=== PATIENT | male | born 1970 | race Caucasian/White ===

== ENCOUNTER 2016-04-13 10:18 | Emergency (ER) | payer MEDICAID ==
[~2016-04-13] VITALS: Wt 64.0 kg
[2016-04-13] MEDS ORDERED: IBUP-1542 PO (11:55)
[2016-04-13] MEDS ORDERED: ALBU18HF INHALATION (11:55)
[2016-04-13] MEDS ORDERED: IBUPROFEN 600 MG TAB PO ONE (12:00)
--- NOTE | 2016-04-13 12:07 | ERD ---
ER Documentation Chief Complaint Date/Time DATE: 04/13/16 TIME: 12:02 Chief Complaint COUGH AND WHEEZING FOR 3 DAYS. GETTING WORSE TODAY. NO INHALERS HPI 45-year-old male with a history of asthma presenting with cough and wheezing for about 3 days. He has had no associated fevers or phlegm. No associated runny nose. He denies any shortness of breath or chest pain. He also complains of left anterior shoulder pain for about 2 days. It started after lifting something heavy. He did not feel a pop or tear. His pain is worse when he tries to lift his arm up over his head. Better with rest. He denies any numbness, tingling, weakness in the arm. ROS All systems reviewed and are negative except as per history of present illness. Medications Home Meds Active Scripts Albuterol Sulfate* (Ventolin HFA*) 18 Gm Hfa.aer.ad, 2 PUFF INHALATION Q6H, #1 INHALER Prov:DINH SHAH MD 04/13/16 Ibuprofen* (Motrin*) 600 Mg Tab, 600 MG PO Q6H Y for PAIN AND OR ELEVATED TEMP, #30 TAB Prov:DINH SHAH MD 04/13/16 PMhx/Soc Hx Respiratory Disorders: Yes (Asthma) Hx Substance Use: No Hx Tobacco Use: No Smoking Status: Never smoker Physical Exam Vitals Vital Signs Date Time Temp Pulse Resp B/P Pulse Ox O2 Delivery O2 Flow Rate FiO2 04/13/16 10:37 98.0 85 22 130/84 95 Physical Exam Const: No apparent distress, nontoxic Head: Atraumatic Eyes: Normal Conjunctiva ENT: Normal External Ears, Nose and Mouth. Neck: Full range of motion. No meningismus. Resp: No respiratory distress, no tachypnea, diffuse wheezing bilaterally on expiration, no rales or rhonchi Cardio: Regular rate and rhythm, no murmurs Abd: Soft, non tender, non distended. Normal bowel sounds Skin: No petechiae or rashes Back: No midline or flank tenderness Ext: No cyanosis, or edema. Left shoulder appears normal. Tenderness to palpation over anterior shoulder joint. No tenderness over the AC joint or clavicle. No deformities noted. Full range of motion. 5 out of 5 strength in all distributions. Pain with active range of motion with abduction at 90 Neur: Awake and alert Psych: Normal Mood and Affect Results 24 hrs Current Medications Medications (Trade) Dose Ordered Sig/Ashley Route PRN Reason Start Time Stop Time Status Last Admin Dose Admin Ibuprofen (Motrin) 600 mg ONCE ONCE PO 04/13/16 12:00 04/13/16 12:01 DC Procedures/MDM Patient is presenting with acute asthma exacerbation that is mild. His vitals are all within normal limits. 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 However he is hemodynamically stable and appropriate for outpatient treatment. Albuterol was prescribed. With regard to his left shoulder pain, it seems like he has a shoulder sprain or strain. I do not suspect an acute cardiac etiology or dissection. He is neurovascularly intact. I recommended rest, ice, no heavy lifting, and ibuprofen for the pain. Patient was discharged in stable condition with a prescription for albuterol and ibuprofen. Departure Diagnosis: Primary Impression: Left shoulder strain Encounter type: initial encounter Qualified Code: S46.912A - Left shoulder strain, initial encounter Additional Impression: Asthma exacerbation, mild Condition: Stable Patient Instructions: Understanding Asthma Triggers, Shoulder Sprain Referrals: ON LICENSE OF [facility] YOU HAVE RECEIVED A MEDICAL SCREENING EXAM AND THE RESULTS INDICATE THAT YOU DO NOT HAVE A CONDITION THAT REQUIRES URGENT TREATMENT IN THE EMERGENCY DEPARTMENT. FURTHER EVALUATION AND TREATMENT OF YOUR CONDITION CAN WAIT UNTIL YOU ARE SEEN IN YOUR DOCTORS OFFICE WITHIN THE NEXT 1-2 DAYS. IT IS YOUR RESPONSIBILITY TO MAKE AN APPOINTMENT FOR FOLOW-UP CARE. IF YOU HAVE A PRIMARY DOCTOR --you should call your primary doctor and schedule an appointment IF YOU DO NOT HAVE A PRIMARY DOCTOR YOU CAN CALL OUR PHYSICIAN REFERRAL HOTLINE AT IF YOU CAN NOT AFFORD TO SEE A PHYSICIAN YOU CAN CHOSE FROM THE FOLLOWING ON LICENSE OF [facility] [address] [facility]. [facility] [address] [facility]. [facility] [address] [facility] [address] [facility]. [facility] [address] [facility] [facility]. [address] MD Apr 13, 2016 12:07
[2016-04-13 12:28] VITALS: RESP 18
== END 2016-04-13 12:29 | disposition home or self-care (01) ==
LOC: FTE 10:18
DX: S46.912A Strain of unspecified muscle, fascia and tendon at shoulder and upper arm level, left arm, initial encounter (principal); J45.901 Unspecified asthma with (acute) exacerbation; X50.0XXA Overexertion from strenuous movement or load, initial encounter; Y92.9 Unspecified place or not applicable
CPT/HCPCS: Z7502; Z7610; 99283

== ENCOUNTER 2016-04-30 09:33 | Emergency (ER) | payer SELFPAY ==
[~2016-04-30] VITALS: Wt 66.8 kg
[~2016-04-30 09:33] MED LIST: ALBU18HF INHALATION; IBUP-1542 PO
[2016-04-30] MEDS ORDERED: IPRATROPIUM (NEB) 0.5 MG/2.5 ML AMP HHN ONE (10:30)
[2016-04-30] MEDS ORDERED: ALBUTEROL 0.083% (NEB) 2.5 MG/3 ML AMP HHN ONE (10:30)
[2016-04-30] MEDS ORDERED: DEXAMETHASONE 10 MG/ML 1 ML INJ IM STA (10:33)
--- NOTE | 2016-04-30 10:46 | RADRPT ---
PROCEDURE: XR Chest AP portable CLINICAL INDICATION: Asthma, cough x1 month TECHNIQUE: An AP portable radiograph of the chest was submitted. COMPARISON: None. FINDINGS: Support Hardware: None Cardiovascular: The cardiovascular silhouette appears unremarkable. Lung Ku: The lung ku appear clear with no nodule, alveolar infiltrate, for a interstitial pr ominence evident. Pleural Spaces: No pneumothorax or pleural effusion is identified. Osseous Structures: Mild degenerative endplate changes are seen to the spine. Soft Tissues: The soft tissues appear unremarkable. IMPRESSION: Unremarkable portable chest. Physician Zuly Date Time Electronically viewed and signed by Physician Zuly on 04/30/2016 10:46 RH/
--- NOTE | 2016-04-30 10:49 | ERD ---
ER Documentation Chief Complaint Date/Time DATE: 04/30/16 TIME: 10:45 Chief Complaint COUGH, SOB, HX OF ASTHMA HPI This is a 45-year-old male with medical history of asthma complaining of nonproductive cough for 1 month and shortness of breath for 1 day. Patient ran out of his albuterol medication week ago. Denies fever, chest pain, nausea, dizziness or anorexia. Denies history of smoking. Patient works as a construction painter and grader cork. Denies night sweats. No recent sick contacts. ROS All systems reviewed and are negative except as per history of present illness. Medications Home Meds Active Scripts Benzonatate* (Tessalon Perle*) 100 Mg Capsule, 100 MG PO Q8H Y for COUGH, #30 CAP Prov:ROSALIND ROBB 04/30/16 Albuterol Sulfate* (Ventolin HFA*) 18 Gm Hfa.aer.ad, 2 PUFF INHALATION Q6H for WHEEZING, #2 INHALER Prov:ROSALIND ROBB 04/30/16 Albuterol Sulfate* (Ventolin HFA*) 18 Gm Hfa.aer.ad, 2 PUFF INHALATION Q6H, #1 INHALER Prov:DINH SHAH MD 04/13/16 Ibuprofen* (Motrin*) 600 Mg Tab, 600 MG PO Q6H Y for PAIN AND OR ELEVATED TEMP, #30 TAB Prov:DINH SHAH MD 04/13/16 PMhx/Soc History of Surgery: No Anesthesia Reaction: No Hx Neurological Disorder: No Hx Respiratory Disorders: Yes (Asthma) Hx Cardiac Disorders: No Hx Psychiatric Problems: No Hx Miscellaneous Medical Probl: No Hx Alcohol Use: No Hx Substance Use: No Hx Tobacco Use: No Physical Exam Vitals Vital Signs Date Time Temp Pulse Resp B/P Pulse Ox O2 Delivery O2 Flow Rate FiO2 04/30/16 10:34 74 19 96 21 04/30/16 09:39 97.6 67 18 133/75 98 Physical Exam Physical Exam CONST: Well-developed, well-nourished, in no acute distress. HEENT: Atraumatic. Normal Conjunctiva. EOM intact. TM intact. External ear is normal. Clear oropharnyx without erythema. Moist mucous membranes. Supple. Full range of motion. No meningismus. No submandibular induration. RESP: Bilateral wheezing upon auscultation on all sagastume. No use of accessory muscles. CARDIO: Regular rate and rhythm, no murmurs ABD: Soft, non tender, non distended. Normal bowel sounds. No McBurney' s point tenderness. No guarding or rigidity. No peritoneal signs. SKIN: No petechiae or rashes BACK: No midline or flank tenderness EXT: No cyanosis or edema. Distal pulses equal and bilateral NEURO: Awake and alert, appropriate for age Results 24 hrs Current Medications Medications (Trade) Dose Ordered Sig/Ashley Route PRN Reason Start Time Stop Time Status Last Admin Dose Admin Albuterol (Proventil 0.083% (Neb)) 5 mg ONCE ONCE HHN 04/30/16 10:30 04/30/16 10:31 DC 04/30/16 10:34 Ipratropium [place] (Atrovent 0.02% (Neb)) 0.5 mg ONCE ONCE HHN 04/30/16 10:30 04/30/16 10:31 DC 04/30/16 10:33 Dexamethasone (Decadron) 10 mg ONCE STAT IM 04/30/16 10:33 04/30/16 10:34 DC 04/30/16 10:48 PROCEDURE: XR Chest AP portable CLINICAL INDICATION: Asthma, cough x1 month TECHNIQUE: An AP portable radiograph of the chest was submitted. COMPARISON: None. FINDINGS: Support Hardware: None Cardiovascular: The cardiovascular silhouette appears unremarkable. Lung Sagastume: The lung sagastume appear clear with no nodule, alveolar infiltrate, for a interstitial prominence evident. Pleural Spaces: No pneumothorax or pleural effusion is identified. Osseous Structures: Mild degenerative endplate changes are seen to the spine. Soft Tissues: The soft tissues appear unremarkable. IMPRESSION: Unremarkable portable chest. Physician Zuly Date Time Electronically viewed and signed by Physician Zuly on 04/30/2016 10:46 Procedures/[facility] EMERGENCY DEPARTMENT COURSE/MEDICAL DECISION MAKING This is a 45-year-old who comes to the emergency room secondary to complaints of cough for 1 month and shortness of breath for 1 day. The patient was given dexamethasone IM, albuterol and Atrovent nebulizer in the department. On re-evaluation, the patient was feeling improved and clear on auscultation. Chest x-ray was reviewed by the radiologist and was unremarkable. My primary diagnosis is acute asthma exacerbation. Secondary diagnosis is chronic cough. Differential diagnoses considered, included but not limited to pneumonia, tuberculosis, pertussis, upper respiratory infection, bronchitis, epiglottitis. I have discussed the diagnostic findings with the patient and answered any questions or concerns. The patient was discharged for outpatient management with a prescription for Atrovent HFA and Tessalon po. The patient was advised to followup with their PMD in 1 week and to return to the Emergency Department if there are any new or worsening symptoms. The patient understood and agreed with the diagnosis, treatment and plan. The patient is stable for discharge at this time. Departure Diagnosis: Primary Impression: Acute asthma exacerbation Asthma severity: severe persistent Qualified Code: J45.51 - Severe persistent asthma with acute exacerbation Additional Impression: Cough present for greater than 3 weeks Condition: Good Patient Instructions: Asthma Medications Referrals: NO PRIMARY,CARE PHYSICIAN (PCP) [facility] ([facility]) Usted se russo hecho un examen mdico de control que le indica que no est en sandra condicin que requiera tratamiento urgente en el Departamento de Emergencia. Un estudio ms profundo y el tratamiento de patel condicin pueden esperar sin ningn riesgo hasta que usted sea atendida/o en el consultorio de patel mdico o sandra cl chai. Es responsabilidad suya arreglar sandra kymberly para el seguimiento del whitley. MANEJO DE CONDICIONES NO URGENTES EN EL FUTURO 1) Si usted tiene un mdico de atencin primaria: Usted debera llamar a patel mdico de atencin primaria antes de venir al departamento de emergencia. Despus de las horas de consultorio, patel doctor o patel asociado/a est disponible por telfono. El mdico o enfermero de maciel en el servicio telefnico puede asesorarle por piotr medio para atender el problema, o whitley contrario se puede programar sandra kymberly. 2) Si usted no tiene un mdico de atencin primaria: Llame al mdico o clnica de referencia que aparece abajo ilan las horas de consultorio para hacer sandra kymberly para que le vean. CLINICAS: [facility] [phone] [facility] [phone] [facility] [phone] [place] [address] [phone] [place] [address] [phone] [facility] [phone] [facility]. [place] () Usted se russo hecho un examen mdico de control que le indica que no est en sandra condicin que requiera tratamiento urgente en el Departamento de Emergencia. Un estudio ms profundo y el tratamiento de patel condicin pueden esperar sin ningn riesgo hasta que usted sea atendida/o en el consultorio de patel mdico o sandra cl chai. Es responsabilidad suya arreglar sandra kymberly para el seguimiento del whitley. MANEJO DE CONDICIONES NO URGENTES EN EL FUTURO 1) Si usted tiene un mdico de atencin primaria: Usted debera llamar a patel mdico de atencin primaria antes de venir al departamento de emergencia. Despus de las horas de consultorio, patel doctor o patel asociado/a est disponible por telfono. El mdico o enfermero de maciel en el servicio telefnico puede asesorarle por piotr medio para atender el problema, o whitley contrario se puede programar sandra kymberly. 2) Si usted no tiene un mdico de atencin primaria: Llame al mdico o condado institucions de referencia que aparece abajo ilan las horas de consultorio para hacer sandra kymberly para que le vean. SI USTED NO PUEDE PAGAR PARA ARIEL UN MEDICO puede ir a: [facility] [address] [place] [address] [facility] [address] [place] [address] [facility] [address] [place] [address] PARA MANGO [facility] [address] [place], [place] [id number] Additional Instructions: Follow-up with your primary care physician within 1 week. Return to the emergency department immediately should you have any new or worsening symptoms, uncontrolled fevers, or other unexplained symptoms. Take all medications as directed. ROSALIND ROBB Apr 30, 2016 10:49
[2016-04-30] MEDS ORDERED: ALBU18HF INHALATION (11:34)
[2016-04-30] MEDS ORDERED: BENZ100C70 PO (11:34)
== END 2016-04-30 11:46 | disposition home or self-care (01) ==
LOC: FTE 09:33
DX: J45.51 Severe persistent asthma with (acute) exacerbation (principal)
CPT/HCPCS: 71010; 94664; 96372; 99284; J1100

== ENCOUNTER 2016-08-08 11:32 | Emergency (ER) | payer SELFPAY ==
[~2016-08-08] VITALS: Ht 162.6 cm; Wt 94.0 kg
[~2016-08-08 11:32] MED LIST changes: +BENZ100C70 PO
[2016-08-08 11:50] VITALS: Ht 162.6 cm; Wt 94.0 kg
[2016-08-08] MEDS ORDERED: IPRATROPIUM (NEB) 0.5 MG/2.5 ML AMP INH STA (13:01)
[2016-08-08] MEDS ORDERED: METHYLPREDNISOLONE 125 MG INJ IM STA (13:01)
[2016-08-08] MEDS ORDERED: ALBUTEROL 0.5% (NEB) 2.5 MG/0.5 ML AMP INH STA (13:01)
--- NOTE | 2016-08-08 14:11 | RADRPT ---
PROCEDURE: XR Chest. CLINICAL INDICATION: chest pain, asthma TECHNIQUE: Single frontal view of the chest was obtained COMPARISON: 04/30/16 FINDINGS: The heart and mediastinum are within normal limits. The lungs are clear. There is no pleural effusion or pneumothorax. RPTAT: AA IMPRESSION: No acute disease. .Jesús King MD, MD Date Time Electronically viewed and signed by .Jesús King MD, on 08/08/2016 14:11 .S/
[2016-08-08] MEDS ORDERED: ALBU18HF INHALATION (14:41)
[2016-08-08] MEDS ORDERED: PRED20TA PO (14:41)
--- NOTE | 2016-08-08 16:06 | ERD ---
ER Documentation Chief Complaint Date/Time DATE: 08/08/16 TIME: 16:03 Chief Complaint asthma x 30 days; wheezing, cough HPI 45-year-old male patient with a past medical history of asthma presents to the ED complaining of a productive cough that started about 30 days ago. Patient reports that he tried to take the Tessalon Perles that were previously prescribed to him and stated that this did work for her his cough but stated that he still felt short of breath. Reports that he has been wheezing. Denies any fever, chills, abdominal pain, nausea, vomiting, diarrhea, chest pain. ROS All systems reviewed and are negative except as per history of present illness. Medications Home Meds Active Scripts Albuterol Sulfate* (Ventolin HFA*) 18 Gm Hfa.aer.ad, 2 PUFF INHALATION Q4H, #1 INHALER Prov:AMANDA DEUTSCH PA-C 08/08/16 Prednisone* (Prednisone*) 20 Mg Tab, 40 MG PO DAILY for 4 Days, TAB Prov:AMANDA DEUTSCH PA-C 08/08/16 Benzonatate* (Tessalon Perle*) 100 Mg Capsule, 100 MG PO Q8H Y for COUGH, #30 CAP Prov:ROSALIND ROBB 04/30/16 Albuterol Sulfate* (Ventolin HFA*) 18 Gm Hfa.aer.ad, 2 PUFF INHALATION Q6H for WHEEZING, #2 INHALER Prov:ROSALIND ROBB 04/30/16 Albuterol Sulfate* (Ventolin HFA*) 18 Gm Hfa.aer.ad, 2 PUFF INHALATION Q6H, #1 INHALER Prov:DINH SHAH MD 04/13/16 Ibuprofen* (Motrin*) 600 Mg Tab, 600 MG PO Q6H Y for PAIN AND OR ELEVATED TEMP, #30 TAB Prov:DINH SHAH MD 04/13/16 Allergies Allergies: Coded Allergies: No Known Allergy (Unverified , 08/08/16) PMhx/Soc History of Surgery: No Anesthesia Reaction: No Hx Neurological Disorder: No Hx Respiratory Disorders: Yes (Asthma) Hx Cardiac Disorders: No Hx Psychiatric Problems: No Hx Miscellaneous Medical Probl: No Hx Alcohol Use: No Hx Substance Use: No Hx Tobacco Use: No Smoking Status: Never smoker Physical Exam Vitals Vital Signs Date Time Temp Pulse Resp B/P Pulse Ox O2 Delivery O2 Flow Rate FiO2 08/08/16 11:50 97.8 73 20 128/87 95 Physical Exam Const: Zjm-[id number]-gizjaonqt, well-nourished. In no acute distress. Head: Atraumatic, normocephalic Eyes: Normal Conjunctiva without injection. No purulent discharge. PERRL. EOMI ENT: Normal external ear. Ear canal without erythema. Tympanic membrane pearly lebron without effusion or bulging. Nasal canal clear with normal turbinates. Moist oropharynx without tonsillar exudates. Non-erythematous pharynx. Uvula midline. No drooling. No trismus. Neck: Full range of motion. No meningismus. No cervical lymphadenopathy. Resp: Expiratory and inspiratory wheezing noted bilaterally. No rhonchi, rales , or crackles. No accessory muscle use. No retractions. Cardio: Regular rate and rhythm. No murmurs, rubs or gallops. Abd: Soft, non tender, non distended. Normal bowel sounds. No palpable masses. No rebound tenderness. No guarding. Skin: No petechiae or rashes Back: No midline tenderness. No CVA tenderness. Ext: No cyanosis, or edema. Neur: Awake and alert. Psych: Normal Mood and Affect Results 24 hrs Current Medications Medications (Trade) Dose Ordered Sig/Ashley Route PRN Reason Start Time Stop Time Status Last Admin Dose Admin Albuterol (Proventil 0.5% (Neb)) 10 mg ONCE STAT INH 08/08/16 13:01 08/08/16 13:06 DC 08/08/16 13:48 Ipratropium [place] (Atrovent 0.02% (Neb)) 1 mg ONCE STAT INH 08/08/16 13:01 08/08/16 13:06 DC 08/08/16 13:48 Methylprednisolone Sodium Succinate (Solu-Medrol) 125 mg ONCE STAT IM 08/08/16 13:01 08/08/16 13:06 DC 08/08/16 13:12 Procedures/MDM This is a 45-year-old male patient with a past medical history of asthma presents to the ED complaining of a productive cough that started 30 days ago. Patient is afebrile nontoxic appearing. Patient has normal vital signs. A chest x-ray was ordered to further evaluate patient. Breathing treatment consisting of 10 mg continuous albuterol, 1 mg continuous Atrovent, 125 mg IM Solu-Medrol was given to patient with improvement of his symptoms. Patient verbally stated that the felt better. PROCEDURE: XR Chest. CLINICAL INDICATION: chest pain, asthma TECHNIQUE: Single frontal view of the chest was obtained COMPARISON: 04/30/16 FINDINGS: The heart and mediastinum are within normal limits. The lungs are clear. There is no pleural effusion or pneumothorax. RPTAT: AA IMPRESSION: No acute disease. Patient likely has an asthma exacerbation. Wheezing improved. Low suspicion for atypical MO, pneumonia, pulmonary embolism, pneumothorax, cardiac tamponade, sinusitis, peritonsillar abscess, mastoiditis, Jaime's angina, retropharyngeal abscess, meningitis, sepsis or other emergent conditions. Patient's respiratory status has stabilized while in the department and is appropriate for outpatient work up. Exam and work up not consistent w/ impending respiratory failure or cardiovascular collapse. Discharge medications: Prednisone, Ventolin Instructed parent to bring patient to follow up with family doctor in 1-2 days. Instructed parent to bring patient back to the ED sooner for any worsening symptoms. Parent's questions were answered. Parent understood and agreed with discharge plan. Patient discharged stable. Departure Diagnosis: Primary Impression: Cough Additional Impression: Asthma exacerbation Condition: Stable Patient Instructions: Asthma, Acute (Adult) Referrals: [facility] ([facility]) Usted se russo hecho un examen mdico de control que le indica que no est en sandra condicin que requiera tratamiento urgente en el Departamento de Emergencia. Un estudio ms profundo y el tratamiento de patel condicin pueden esperar sin ningn riesgo hasta que usted sea atendida/o en el consultorio de patel mdico o sandra cl chai. Es responsabilidad suya arreglar sanrda danielle para el seguimiento del whitley. MANEJO DE CONDICIONES NO URGENTES EN EL FUTURO 1) Si usted tiene un mdico de atencin primaria: Usted debera llamar a patel mdico de atencin primaria antes de venir al departamento de emergencia. Despus de las horas de consultorio, patel doctor o patel asociado/a est disponible por telfono. El mdico o enfermero de maciel en el servicio telefnico puede asesorarle por piotr medio para atender el problema, o whitley contrario se puede programar sandra danielle. 2) Si usted no tiene un mdico de atencin primaria: Llame al mdico o clnica de referencia que aparece abajo ilan las horas de consultorio para hacer sandra danielle para que le vean. CLINICAS: [facility] [phone] [facility] [phone] [facility] [phone] [place] [address] [phone] [place] [phone] [facility] [phone] [address] [facility]. [facility] () Usted se russo hecho un examen mdico de control que le indica que no est en sandra condicin que requiera tratamiento urgente en el Departamento de Emergencia. Un estudio ms profundo y el tratamiento de patel condicin pueden esperar sin ningn riesgo hasta que usted sea atendida/o en el consultorio de patel mdico o sandra cl chai. Es responsabilidad suya arreglar sandra danielle para el seguimiento del whitley. MANEJO DE CONDICIONES NO URGENTES EN EL FUTURO 1) Si usted tiene un mdico de atencin primaria: Usted debera llamar a patel mdico de atencin primaria antes de venir al departamento de emergencia. Despus de las horas de consultorio, patel doctor o patel asociado/a est disponible por telfono. El mdico o enfermero de maciel en el servicio telefnico puede asesorarle por piotr medio para atender el problema, o whitley contrario se puede programar sandra danielle. 2) Si usted no tiene un mdico de atencin primaria: Llame al mdico o condado institucions de referencia que aparece abajo ilan las horas de consultorio para hacer sandra danielle para que le vean. SI USTED NO PUEDE PAGAR PARA ARIEL UN MEDICO puede ir a: [facility] [address] [place] [address] [facility] [address] [place] [address] [facility] [address] [place] [address] PARA MANGO [facility] [address] [place], [place] [id number] [facility] URGENT CARE/SPECIALTIES Additional Instructions: Llame al doctor MAANA y xuan sandra DANIELLE PARA DENTRO DE 1-2 MARTINEZ.Dgale a la secretaria que nosotros le instruimos hacer esta danielle.Avise o llame si patel condicin se empeora antes de la danielle. Regresa aqui si peor o no mejor. AMANDA DEUTSCH PA-C August 08, 2016 16:06 AMANDA DEUTSCH PA-C August 08, 2016 16:06
== END 2016-08-08 15:10 | disposition home or self-care (01) ==
LOC: FTE 11:32
DX: R05 Cough (principal); J45.901 Unspecified asthma with (acute) exacerbation
CPT/HCPCS: 71010; 94664; 96372; 99284; J2930